=== PATIENT | male | born 1970 | race Caucasian/White ===

== ENCOUNTER 2024-09-17 09:11 | Emergency (ER) | payer MEDICAID ==
[2024-09-17] MEDS: Ketorolac 30 MG/ML SDV IM ONE (09:27)
[2024-09-17] MEDS ORDERED: Naloxone 0.4 MG/ML SDV IVPUSH PRN (10:08)
[2024-09-17] MEDS: HYDROmorphone 1 MG/ML Syringe IM ONE (10:16)
[2024-09-17] MEDS: Methocarbamol 1,000 MG/10 ML SDV IM ONE (10:20)
== END 2024-09-17 11:00 | disposition home or self-care (01) ==
LOC: KA.ED 09:11
DX: S22.41XA Multiple fractures of ribs, right side, initial encounter for closed fracture (principal); M54.50 Low back pain, unspecified; G89.29 Other chronic pain; F17.210 Nicotine dependence, cigarettes, uncomplicated; Z79.899 Other long term (current) drug therapy; W00.0XXA Fall on same level due to ice and snow, initial encounter
CPT/HCPCS: 71100-RT; 72070; 96372; 99283; J1171; J1885; J2800

== ENCOUNTER 2025-09-19 16:30 | Emergency (ER) | payer MEDICAID ==
[2025-09-19] MEDS: hydrALAZINE 20 MG/ML SDV IVPUSH ONE ×3 (17:05→18:49)
[2025-09-19 17:11] LABS: BASOPHILS ABSOLUTE AUTO 0.04 10^3/uL (0.00-0.10); BASOPHILS PERCENT AUTO 0.3 % (0.0-1.0); EOSINOPHILS ABSOLUTE AUTO 0.02 10^3/uL (0.10-0.30); EOSINOPHILS PERCENT AUTO 0.1 % (1.0-3.0); IMMATURE GRAN ABSOLUTE AUTO 0.02 10^3/uL (0.00-0.04); IMMATURE GRAN PERCENT AUTO 0.1 % (0.0-0.4); LYMPHOCYTES ABSOLUTE AUTO 2.50 10^3/uL (1.00-4.00); LYMPHOCYTES PERCENT AUTO 17.1 % (20.0-40.0); MEAN PLATELET VOLUME 9.2 fL (7.4-10.4); MONOCYTES ABSOLUTE AUTO 1.18 10^3/uL (0.10-0.80); MONOCYTES PERCENT AUTO 8.1 % (2.0-8.0); NEUTROPHILS ABSOLUTE AUTO 10.84 10^3/uL (2.50-7.00); NEUTROPHILS PERCENT AUTO 74.3 % (50.0-70.0); PLATELET COUNT,PLT 300 10^3/uL (150-400); RED BLOOD CELL COUNT 4.84 10^6/uL (4.50-6.00); RED CELL DISTRIBUTION WIDTH 12.6 % (11.5-14.5); WHITE BLOOD CELL COUNT,WBC 14.60 10^3/uL (5.00-10.00)
[2025-09-19 17:19] LABS: APPEARANCE,URINE CLEAR (CLEAR); GLUCOSE,URINE NEGATIVE (NEGATIVE); OCCULT BLOOD,URINE NEGATIVE (NEGATIVE)
[2025-09-19 17:26] LABS: ALANINE AMINOTRANSFERASE,ALT 18 U/L (14-63); ASPARTATE AMNIOTRANSFERASE,AST 18 U/L (15-37); BILIRUBIN TOTAL 0.5 mg/dL (0.2-1.0); BLOOD UREA NITROGEN,BUN 11 mg/dL (7-18); CARBON DIOXIDE,CO2 26.5 mmol/L (21.0-32.0); CHLORIDE,CL 95 mmol/L (98-107); CREATININE 0.87 mg/dL (0.51-1.17); EST CRCL DRUG DOSING (CG) 94.81 mL/min; GLUCOSE RANDOM 115 mg/dL (70-140); POTASSIUM,K 3.1 mmol/L (3.5-5.1); PROTEIN TOTAL,TP 8.5 g/dL (6.4-8.2); SODIUM,NA 137 mmol/L (136-145)
[2025-09-19 17:27] LABS: ESTIMATED GFR 101 mL/min (>=60)
[2025-09-19 17:29] LABS: AMPHETAMINES SCREEN, URINE NEGATIVE (NEGATIVE); COCAINE METABOLITES,URINE NEGATIVE (NEGATIVE); METHADONE SCREEN, URINE NEGATIVE (NEGATIVE); METHAMPHETAMINES SCREEN, URINE NEGATIVE (NEGATIVE); OXYCODONE SCREEN,URINE NEGATIVE (NEGATIVE); PCP SCREEN,URINE NEGATIVE (NEGATIVE); TCA SCREEN,URINE NEGATIVE (NEGATIVE); THC SCREEN,URINE 50 NG/ML POSITIVE (NEGATIVE)
[2025-09-19] MEDS: Metoprolol Tartrate 5 MG/5 ML SDV IVPUSH ONE ×2 (17:30→19:07)
[2025-09-19 17:33] LABS: B-TYPE NATRIURETIC PEPTIDE,BNP 41 pg/mL (0-100)
[2025-09-19] MEDS: Ketorolac 30 MG/ML SDV IVPUSH ONE (19:12)
[2025-09-19] MEDS: Sodium Chloride 0.9% 10 ML Syringe FLUSH PRN (19:16)
[2025-09-19] MEDS: Iopamidol 755 Mg/ML 100 ML Bottle IV ONE (20:03)
== END 2025-09-19 21:09 | disposition home or self-care (01) ==
LOC: KA.ED 16:30
DX: I10 Essential (primary) hypertension (principal); M54.9 Dorsalgia, unspecified; G89.29 Other chronic pain; D72.829 Elevated white blood cell count, unspecified; K21.9 Gastro-esophageal reflux disease without esophagitis; Z79.899 Other long term (current) drug therapy
CPT/HCPCS: 70470; 80053; 80305; 81003; 83605; 83880; 84484; 85025; 86140; 93010; 96374; 96375; 96376; 99284; A9270; J0360; J0616; J1885; Q9967